=== PATIENT | female | born 1945 | race Caucasian/White ===

== ENCOUNTER → 2022-05-19 10:13 | Outpatient (CLI) | payer MEDICARE, SELFPAY ==
--- NOTE | ~2022-05-19 | MM_ITS ---
EXAMINATION: MM screening [facility] BI w ivone HISTORY: Screening TECHNIQUE: Craniocaudal and mediolateral oblique 3-D tomosynthesis images were obtained and synthetic 2-D images were generated. CAD analysis was submitted and interpreted. COMPARISON: Comparison to multiple prior studies sequentially, with oldest reviewed study dated 04/2014. BREAST PARENCHYMAL COMPOSITION: The breasts are almost entirely fatty. FINDINGS: There is a new cluster of punctate calcifications in the lower outer quadrant of the left b reast posteriorly. The right breast is stable without evidence for malignancy. IMPRESSION: 1. Cluster of indeterminate calcifications, lower outer quadrant of the left breast posteriorly. 2. Magnification views are recommended. BI-RADS Category 0: Incomplete: Needs additional imaging evaluation. Reviewed, dictated and finalized at location A. IMPRESSION: 1. Cluster of indeterminate calcifications, lower outer quadrant of the left br east posteriorly. 2. Magnification views are recommended. BI-RADS Category 0: Incomplete: Needs additional imaging evaluation.
== END ==
PROVIDERS: PCP Internal Medicine; Visit Provider Internal Medicine
DX: Z12.31 Encounter for screening mammogram for malignant neoplasm of breast (principal); R92.8 Other abnormal and inconclusive findings on diagnostic imaging of breast
CPT/HCPCS: 77063; 77067

== ENCOUNTER 2022-06-09 13:07 | Emergency (ER) | payer MEDICARE, SELFPAY ==
--- NOTE | ~2022-06-09 | XR_ITS ---
EXAMINATION: XR pelvis 1-2V DATE: 06/09/2022 14:01 INDICATION: Left hip pain. Fall. TECHNIQUE: An anteroposterior view of the pelvis was obtained. COMPARISON: Left hip radiographs 08/02/2016 FINDINGS: Bone alignment is normal. No fracture. There is mild lumbar spondylosis. Osteitis pubis is noted. The hip joint spaces are normal. IMPRESSION: 1. No fracture. Reviewed, dictated and finalized at location A. IMPRESSION: 1. No fracture.
--- NOTE | ~2022-06-09 | XR_ITS ---
EXAMINATION: XR femur LT min 2V DATE: 06/09/2022 14:01 INDICATION: Left hip pain. Fall. TECHNIQUE: 2 views of left femur on 4 radiographs were obtained. COMPARISON: None. FINDINGS: Bone alignment is normal. No fracture. Osteitis pubis is noted. There is mild left knee ost eoarthritis. No knee joint effusion. IMPRESSION: 1. Mild left knee osteoarthritis. Reviewed, dictated and finalized at location A.
--- NOTE | ~2022-06-09 | CT_ITS ---
EXAMINATION: CT brain wo con DATE: 06/09/2022 13:51 INDICATION: Head injury. TECHNIQUE: Computed tomography (CT) of the head was performed without intravenous contrast. The mA wa s adjusted according to patient size. Iterative reconstruction technique was employed. The dose-lengt h product was 605.33 mGy-cm. COMPARISON: None FINDINGS: There is no intracranial hemorrhage, acute infarction, or abnormal intracranial mass lesion . There are scattered areas of low attenuation in the cerebral white matter, which is within normal l imits for the patient's age. The ventricles are normal in size. The orbits are normal. There is mild mucosal thickening in the ethmoid sinuses. The mastoid air cells are normal. IMPRESSION: 1. Normal aging brain. Reviewed, dictated and finalized at location A. IMPRESSION: 1. Normal aging brain.
[2022-06-09 13:15] VITALS: BP 192/87; PULSE 90; RESP 16; TEMP 36.3; O2SAT 97
--- NOTE | 2022-06-09 13:18 | ED.FALL ---
HPI - Fall General Chief Complaint: Fall Stated Complaint: FELL AT HOME LEFT HIP PAIN AND HIT HEAD Time Seen by Provider: 06/09/22 13:11 Source: patient and RN notes reviewed Mode of arrival: ambulatory Limitations: no limitations History of Present Illness complaint: fall Onset (ago): hour(s) (1) Fall from: standing Fall witnessed: no Place fall occurred: home Loss of consciousness: none Prolonged down time: no Symptoms prior to fall: none Context: tripped/slipped Location of injury: head and pelvis Location of injury - extremities: Left: thigh Severity: moderate Quality: dull and aching Associated symptoms (after fall): denies Related Data Home Medications Medication Instructions Recorded Confirmed losartan 100 mg tablet 100 mg PO DAILY 06/09/22 06/09/22 Allergies Allergy/AdvReac Type Severity Reaction Status Date / Time erythromycin base Allergy Unknown STOMACH Verified 06/09/22 13:27 PAIN guaifenesin Allergy Unknown Jittery Verified 06/09/22 13:27 phenylpropanolamine Allergy Unknown Unknown Verified 06/09/22 13:27 Sulfa (Sulfonamide Allergy Unknown Rash Verified 06/09/22 13:27 Antibiotics) codeine AdvReac Mild Nausea and Verified 06/09/22 13:27 Vomiting PHENYLEPHRINE HCL Allergy Mild Unknown Uncoded 06/09/22 13:27 PSEUDOEPHEDRINE TANNATE Allergy Unknown Jittery Uncoded 06/09/22 13:27 Review of Systems Review of Systems: All systems reviewed & are unremarkable except as noted in HPI and below PMFSH Past Medical History Medical History (Updated 06/09/22 @ 14:53 by Jhonny Bridges MD) Hypertension Surgical History Surgical History (Updated 06/09/22 @ 13:22 by Jhonny Bridges MD) History of total abdominal hysterectomy Hx of tonsillectomy Social History Social History (Updated 06/09/22 @ 13:22 by Jhonny Bridges MD) Smoking status: Never smoker Exam Const: General: healthy appearing, no acute distress and alert Nutritional Appearance: well nourished Orientation/consciousness: patient oriented x3 Limitations: no limitations HENMT: Head: normal to inspection, No palpable skull fracture present, normocephalic, no abrasions and no scalp tenderness Ears: external ears normal Eyes: Conjunctivae: conjunctivae normal Pupils: Equal, round and reactive pupils present EOM: EOMs intact bilaterally Neck: Neck: normal visual inspection Resp: Effort & Inspection: normal respiratory effort Auscultation: clear to auscultation bilaterally Cardio: Rate: regular rate Rhythm: regular rhythm GI: GI Palp: Yes Soft to palpation and No Tenderness to palpation present (GI) Auscultation: normal bowel sounds Back/Spine/Pelvis: Cervical Spine: cervical ROM normal Thoracic/Lumbar Spine: thoraco-lumbar ROM normal Skin: General skin exam: normal color Wounds: no wounds Neuro: General: patient oriented x3, moves all extremities, no focal motor deficits and CN's II-XI intact bilaterally Speech: normal speech Gait exam (Neuro): Normal gait present Other: GCS is 15 Extrem: General: normal exam except as noted Left lower extremity: hip/thigh Details: tenderness Location: of the hip Location: anteriorly and of the proximal upper leg Location: laterally and anteriorly, normal ROM and abnormal ROM Details: pain with active ROM Details: with ABduction, with flexion, with internal rotation and with external rotation Psych: Mental Status: mental status grossly normal Affect: normal affect Attitude: cooperative Course Vital Signs Vital signs: Vital Signs Temperature 36.3 C L 06/09/22 13:15 Pulse Rate 90 06/09/22 13:15 Respiratory Rate 16 06/09/22 13:15 Blood Pressure 192/87 H 06/09/22 13:15 Pulse Oximetry 97 06/09/22 13:15 Oxygen Delivery Room Air 06/09/22 13:15 Temperature 36.8 C 06/09/22 14:20 Pulse Rate 85 06/09/22 14:20 Respiratory Rate 16 06/09/22 14:20 Blood Pressure 202/80 H 06/09/22 14:55 Pulse Oximetry 98 06/09/22 14:20 Oxygen Delivery
[2022-06-09 14:20] VITALS: PULSE 85; RESP 16; TEMP 36.8; O2SAT 98
[2022-06-09 14:55] VITALS: BP 202/80
== END 2022-06-09 15:00 | disposition home or self-care (01) ==
PROVIDERS: Emergency Provider Emergency Medicine; PCP Internal Medicine
DX: S80.12XA Contusion of left lower leg, initial encounter (principal); W19.XXXA Unspecified fall, initial encounter; I10 Essential (primary) hypertension
CPT/HCPCS: 70450; 72170; 73552; 99284

== ENCOUNTER → 2022-06-26 08:55 | Outpatient (CLI) | payer MEDICARE, SELFPAY ==
--- NOTE | ~2022-06-26 | MMUS_ITS ---
EXAMINATION: MM diagnostic aki LT w ivone, US breast LT limited HISTORY: Indeterminate calcifications on screening mammogram TECHNIQUE: Additional images of the left breast were performed. CAD analysis was submitted and interp reted. High resolution limited left breast ultrasound was performed. COMPARISON: 05/19/2022, 08/23/2017, 01/05/2014, 12/05/2013 BREAST PARENCHYMAL COMPOSITION: The breasts are almost entirely fatty. FINDINGS: MAMMOGRAPHIC FINDINGS: There are grouped calcifications in the posterior third of the central breast. Calcifications appear to be round in morphology but are small in size. Although magnification views have not previously bee n performed, the calcifications have a configuration similar to comparison mammograms. There is a 3 m m round, obscured, equal density mass in the posterior third of the outer breast at the 3:00 location 12 cm from the nipple. ULTRASOUND: There is a 3 mm round, hypoechoic mass with no posterior features or internal vascularity at the 3:00 location 8 cm from the nipple. IMPRESSION: 1. Probably benign left breast calcifications and left breast mass. 2. Recommend 6 month follow-up left diagnostic mammogram and ultrasound. BI-RADS category 3, probably benign findings. Reviewed, dictated and finalized at location A. IMPRESSION: 1. Probably benign left breast calcifications and left breast mass. 2. Recommend 6 month follow-up left diagnostic mammogram and ultrasound. BI-RADS category 3, probably benign findings.
== END ==
PROVIDERS: PCP Internal Medicine; Visit Provider Internal Medicine
DX: R92.8 Other abnormal and inconclusive findings on diagnostic imaging of breast (principal)
CPT/HCPCS: 76642; 77061; 77065; G0279

== ENCOUNTER 2022-08-23 00:45 | Day surgery (SDC) | payer MEDICARE, SELFPAY ==
[2022-08-08 13:29] VITALS: BMI 26.2
--- NOTE | 2022-08-22 13:01 | PM.HPGS ---
History of Present Illness History of Present Illness Consent: Risks, benefits, and alternatives have been discussed and questions answered. Patient agrees to proceed with procedure. Chief complaint: history of colon polyps Narrative: Mayra Jorgensen is a 76 year old female who was referred for colon cancer screening. It has been 5 years since her last colonoscopy. Ten years ago she had removal of a polyp from the rectum which was 15 mm diameter. Review of Systems Review of Systems: All systems reviewed & are unremarkable except as noted in HPI and below PMFSH Past Medical History Medical History Hypertension Surgical History Surgical History History of total abdominal hysterectomy Hx of tonsillectomy Social History Social History Smoking status: Never smoker Living arrangements: with family Spiritual care concerns: No Meds Home Medications and Allergies Home Medications Medication Instructions Recorded Confirmed Type losartan 100 mg tablet 100 mg PO DAILY 06/09/22 08/23/22 History Allergies Allergy/AdvReac Type Severity Reaction Status Date / Time erythromycin base Allergy Unknown STOMACH Verified 08/23/22 09:13 PAIN guaifenesin Allergy Unknown Jittery Verified 08/23/22 09:13 phenylpropanolamine Allergy Unknown Unknown Verified 08/23/22 09:13 Sulfa (Sulfonamide Allergy Unknown Rash Verified 08/23/22 09:13 Antibiotics) codeine AdvReac Mild Nausea and Verified 08/23/22 09:13 Vomiting PHENYLEPHRINE HCL Allergy Mild Unknown Uncoded 08/23/22 09:13 PSEUDOEPHEDRINE TANNATE Allergy Unknown Jittery Uncoded 08/23/22 09:13 Exam Const: General: alert Orientation/consciousness: patient oriented x3 Resp: Auscultation: clear to auscultation bilaterally Cardio: Rhythm: regular rhythm GI: GI Palp: Yes Soft to palpation and No Tenderness to palpation present (GI) Neuro: General: patient oriented x3 Assessment and Plan Assessment and plan (1) Colon cancer screening: Code(s): Z12.11 - Encounter for screening for malignant neoplasm of colon Status: Acute Assessment and Plan: Colonoscopy with possible biopsy or polypectomy or cautery or injection of substances.
[2022-08-23 09:14] VITALS: BP 187/78; PULSE 99; RESP 16; TEMP 36.4; O2SAT 100
[2022-08-23] MEDS: LACTATED RINGERS 1,000 ML 150 ML IV CONT (09:21)
--- NOTE | 2022-08-23 09:49 | P.PNAN_ITS ---
Anes - Initial Pre Proc Eval Procedure: Operation Date: 08/23/22 10:30 Proposed Procedures p Screening Colonoscopy - Santos Lobo MD Date/Time: 08/23/22 09:49 Surgeon: Santos Lobo MD Pre Op Diagnosis: history of colon polyps Patient Data Age: 76 Gender: F Height: 1.52 m Weight: 60.7 kg Last Vital Signs Temp 97.6 F 08/23/22 09:14 Pulse 99 08/23/22 09:14 Resp 16 08/23/22 09:14 BP 187/78 H 08/23/22 09:14 Pulse Ox 100 08/23/22 09:14 O2 Del Method Room Air 08/23/22 09:14 Allergies Allergy/AdvReac Type Severity Reaction Status Date / Time erythromycin base Allergy Unknown STOMACH Verified 08/23/22 09:13 PAIN guaifenesin Allergy Unknown Jittery Verified 08/23/22 09:13 phenylpropanolamine Allergy Unknown Unknown Verified 08/23/22 09:13 Sulfa (Sulfonamide Allergy Unknown Rash Verified 08/23/22 09:13 Antibiotics) codeine AdvReac Mild Nausea and Verified 08/23/22 09:13 Vomiting PHENYLEPHRINE HCL Allergy Mild Unknown Uncoded 08/23/22 09:13 PSEUDOEPHEDRINE TANNATE Allergy Unknown Jittery Uncoded 08/23/22 09:13 Home Medications Medication Instructions Recorded Confirmed Type losartan 100 mg tablet 100 mg PO DAILY 06/09/22 08/23/22 History Patient hx anesthesia problems: none Family hx anesthesia problems: none Results Review: All pre-operative results and documents have been reviewed as part of the pre- operative evaluation. [facility] Past Medical History Medical History Hypertension Surgical History Surgical History History of total abdominal hysterectomy Hx of tonsillectomy Social History Social History Smoking status: Never smoker Living arrangements: with family Spiritual care concerns: No Anes - Eval Final PreProcedure Day of Procedure 08/23/22 09:49 Patient weight: normal Heart: regular rate and rhythm Lungs: clear to auscultation Airway: Mallampati scale class II Neurological: alert and oriented Last oral intake: >/= 8 hours ASA classification: II Emergent: no Anesthetic plan: proceed Anesthesia type and monitoring: general GIVS and standard monitoring Results Review: All pre-operative results and documents have been reviewed as part of the pre- operative evaluation. Informed Consent: The patient's anesthetic plan and its attendant risks and benefits were discussed with the patient/family/POA. Questions were solicited and answers provided to the satisfaction of the patient/family/POA.
[2022-08-23 10:18] VITALS: BP 108/55; PULSE 70; RESP 24; O2SAT 98
[2022-08-23 10:28] VITALS: BP 119/60; PULSE 65; RESP 22; O2SAT 98
[2022-08-23 10:38] VITALS: BP 133/70; PULSE 71; RESP 21; O2SAT 96
== END 2022-08-23 10:50 | disposition home or self-care (01) ==
PROVIDERS: PCP Internal Medicine; Visit Provider Internal Medicine Gastroenterology
PROC: 0DJD8ZZ Inspection of Lower Intestinal Tract, Via Natural or Artificial Opening Endoscopic (ICD-10-PCS; CPT 45378; principal; 2022-08-23 10:30)
DX: Z12.11 Encounter for screening for malignant neoplasm of colon (principal); K57.30 Diverticulosis of large intestine without perforation or abscess without bleeding; K63.89 Other specified diseases of intestine; Z86.010 Personal history of colon polyps; I10 Essential (primary) hypertension
CPT/HCPCS: G0105; J2704; J7120